=== PATIENT | male | born 1990 | race Two or more races ===

== ENCOUNTER 2021-08-09 21:13 | Emergency (ER) | payer OTHER ==
[~2021-08-09] VITALS: Ht 180.3 cm; Wt 72.7 kg
[2021-08-09 23:31] LABS: BASOPHILS % (AUTO) 0.4 % (0.0-2.0); EOSINOPHILS % (AUTO) 1.1 % (1.0-6.0); HEMATOCRIT 44.6 % (41-53); HEMOGLOBIN 14.5 g/dL (13.5-17.5); LYMPHOCYTES # (AUTO) 1.2 K/uL (1.0-4.8); LYMPHOCYTES % (AUTO) 22.5 % (22.0-44.0); MEAN CORPUSCULAR HEMOGLOBIN 28.9 pg (26.0-34.0); MEAN CORPUSCULAR HGB CONC 32.6 G/dL (31.0-37.0); MEAN CORPUSCULAR VOLUME 89 fL (80-100); MONOCYTES # (AUTO) 0.4 K/uL (0.1-1.0); MONOCYTES % (AUTO) 7.4 % (2.0-9.0); NEUTROPHILS # (AUTO) 3.6 K/uL (1.8-7.7); NEUTROPHILS % (AUTO) 68.6 % (40.0-70.0); PLATELET COUNT (AUTO) 188 K/uL (150-450); RED BLOOD CELL COUNT(AUTO) 5.04 MIL/uL (4.50-5.90); RED CELL DISTRIBUTION WIDTH 12.8 % (11.5-14.5)
[2021-08-09 23:45] LABS: COVID AG,FIA SOURCE NASOPHARYNGEAL
[2021-08-09 23:47] LABS: ANION GAP 5 mmol/L (8-16); CALCIUM, TOTAL 8.9 mg/dL (8.8-10.5); CARBON DIOXIDE 32 mmol/L (22-29); CHLORIDE 106 mmol/L (98-107); CREATININE 0.92 mg/dL (0.60-1.30); GLOMERULAR FILTR. RATE CALC > 60 mL/min (>60); GLUCOSE,RANDOM 111 mg/dL (70-110); SODIUM SERUM 143 mmol/L (136-145); UREA NITROGEN, BLOOD 10 mg/dL (7-18)
[2021-08-09 23:59] LABS: ACETAMINOPHEN < 2 mcg/mL (10-30); ALANINE AMINOTRANSFERASE 26 U/L (12-78); ALBUMIN 4.2 g/dL (3.4-5.0); ALKALINE PHOSPHATASE 76 U/L (46-116); ASPARTATE AMINOTRANSFERASE 16 U/L (15-37); BILIRUBIN,TOTAL 0.5 mg/dL (0.1-1.0); TOTAL PROTEIN, SERUM 7.6 g/dL (6.4-8.2)
[2021-08-10 00:10] LABS: SALICYLATE < 2.8 mg/dL (2.8-20.0)
[2021-08-10 03:14] VITALS: BP 123/78
== END 2021-08-10 03:49 | disposition short-term general hospital (02) ==
LOC: EMS 21:15
DX: F32.9 Major depressive disorder, single episode, unspecified (principal); Z20.822 Contact with and (suspected) exposure to COVID-19
CPT/HCPCS: 80053; 85025; 87426; 99285; G0480; G0481

== ENCOUNTER 2025-07-08 19:16 | Emergency (ER) | payer OTHER ==
[~2025-07-08] VITALS: Ht 177.8 cm; Wt 100.0 kg
[2025-07-08 19:28] VITALS: TEMP 98.3
[2025-07-08 20:40] LABS: COVID AG,FIA SOURCE NASAL SWAB
[2025-07-08 20:58] LABS: SARS-COV2 (COVID) ANTIGEN,FIA Negative (Negative)
[2025-07-08 21:24] LABS: PH,URINE DRUG SCREEN 5.5 (5.0-8.0)
[2025-07-08 21:30] LABS: ALCOHOL, URINE DRUG SCREEN NEGATIVE (NEGATIVE); AMPHET/METH SCREEN,URINE NEGATIVE (NEGATIVE); BARBITURATE SCREEN, URINE NEGATIVE (NEGATIVE); CANNABINOID SCREEN,URINE NEGATIVE (NEGATIVE); COCAINE SCREEN,URINE NEGATIVE (NEGATIVE); METHADONE SCREEN, URINE NEGATIVE (NEGATIVE)
[2025-07-08 21:47] LABS: RED BLOOD CELL COUNT(AUTO) 5.07 MIL/uL (4.50-5.90); RED CELL DISTRIBUTION WIDTH 13.6 % (11.5-14.5); WHITE BLOOD COUNT (AUTO) 5.7 K/uL (4.5-11.0)
[2025-07-08 21:48] LABS: PLATELET COUNT (AUTO) 179 K/uL (150-450)
[2025-07-08 21:57] LABS: CALCIUM, TOTAL 8.6 mg/dL (8.8-10.5); CREATININE 0.88 mg/dL (0.60-1.30); GLOMERULAR FILTR. RATE CALC > 60 mL/min (>60); GLUCOSE,RANDOM 93 mg/dL (70-110); SODIUM SERUM 140 mmol/L (136-145); UREA NITROGEN, BLOOD 12 mg/dL (7-18)
[2025-07-08 22:06] LABS: TROPONIN I-HIGH SENSITIVITY 4 ng/L (<76)
[2025-07-08 22:18] LABS: ASPARTATE AMINOTRANSFERASE 26 U/L (15-37); TOTAL PROTEIN, SERUM 7.3 g/dL (6.4-8.2)
[2025-07-08 22:28] LABS: ALCOHOL, BLOOD (SERUM) < 3 mg/dL (0-10)
[2025-07-08] MEDS ORDERED: WATER IV ONE ×2 (22:45→23:45)
[2025-07-08] MEDS ORDERED: DEXTROSE 5% IV ONE ×2 (22:45→23:45)
[2025-07-08] MEDS ORDERED: ACETYLCYSTEINE IV ONE ×2 (22:45→23:45)
[2025-07-09 04:30] VITALS: BP 123/75; PULSE 57; RESP 16; O2SAT 99
== END 2025-07-09 05:00 | disposition admitted as inpatient to this hospital (09) ==
LOC: EMS 19:17
DX: R45.851 Suicidal ideations (principal); F32.9 Major depressive disorder, single episode, unspecified; F20.9 Schizophrenia, unspecified; F41.9 Anxiety disorder, unspecified; Z20.822 Contact with and (suspected) exposure to COVID-19; Z79.899 Other long term (current) drug therapy
CPT/HCPCS: 99285; 87426; 80048; 80076; 83690; 84484; 85025; 36415; 93005; 80307; G0480; 99284; G0481; J0132; J7060